=== PATIENT | female | born 1995 | race Two or more races ===

== ENCOUNTER 2022-04-26 08:40 | Outpatient (CLI) | payer OTHER | END 2022-04-26 23:59 | disposition home or self-care (01) | LOC: WOU 08:40 | PROVIDERS: ATTEND Surgery | DX: L72.3 Sebaceous cyst (principal) | CPT/HCPCS: G0463 ==

== ENCOUNTER 2022-05-10 08:00 | Outpatient (CLI) | payer OTHER | END 2022-05-10 23:59 | disposition home or self-care (01) | LOC: WOU 08:00 | PROVIDERS: ATTEND Surgery | DX: L72.3 Sebaceous cyst (principal) | CPT/HCPCS: G0463 ==

== ENCOUNTER 2022-06-28 08:10 | Outpatient (CLI) | payer OTHER ==
[2022-06-28 08:34] LABS: BASOPHILS % (AUTO) 0.5 % (0.0-2.0); EOSINOPHILS % (AUTO) 1.1 % (0.0-6.0); HEMATOCRIT 40 % (33-45); HEMOGLOBIN 13.3 g/dL (11.5-14.8); LYMPHOCYTES # (AUTO) 1.8 K/uL (0.8-4.8); LYMPHOCYTES % (AUTO) 28.7 % (20.0-44.0); MEAN CORPUSCULAR HGB CONC 34 g/dl (31.0-36.0); MEAN CORPUSCULAR VOLUME 90 fL (82-100); MONOCYTES # (AUTO) 0.6 K/uL (0.1-1.30); MONOCYTES % (AUTO) 9.3 % (2.0-12.0); NEUTROPHILS # (AUTO) 3.7 K/uL (1.8-8.9); NEUTROPHILS % (AUTO) 60.4 % (43.0-81.0); PLATELET COUNT (AUTO) 221 K/uL (150-450); RED BLOOD CELL COUNT(AUTO) 4.37 MIL/uL (4.0-5.2); WHITE BLOOD COUNT (AUTO) 6.1 K/uL (4.3-11.0)
[2022-06-28 08:38] LABS: CREATININE 0.9 mg/dL (0.6-1.3); POTASSIUM 3.7 mmol/L (3.5-5.1)
== END 2022-06-28 23:59 | disposition home or self-care (01) ==
LOC: LAB 08:10
PROVIDERS: ATTEND Surgery
DX: L72.3 Sebaceous cyst (principal)
CPT/HCPCS: 36415; 80048-TC; 85025-TC; 85610-TC; 85730-TC

== ENCOUNTER 2022-07-01 08:04 | Outpatient (CLI) | payer OTHER | END 2022-07-01 23:59 | disposition home or self-care (01) | LOC: LAB 08:04 | PROVIDERS: ATTEND Surgery | DX: Z01.812 Encounter for preprocedural laboratory examination (principal); Z20.822 Contact with and (suspected) exposure to COVID-19 | CPT/HCPCS: U0003; C9803 ==

== ENCOUNTER 2022-07-05 06:32 | Day surgery (SDC) | payer OTHER ==
[2022-07-05] MEDS ORDERED: FENTANYL PF 250MCG/5ML AMPUL ONE (07:06)
[2022-07-05] MEDS ORDERED: MIDAZOLAM HCL 2 MG/2ML VIAL ONE (07:06)
[2022-07-05] MEDS ORDERED: ANESTHESIA TRAY IN PYXIS 1 EA TRAY MC ONE ×2 (07:06→07:08)
[2022-07-05] MEDS ORDERED: LIDOCAINE 1%-EPI 1:100,000 20 ML VIAL ONE (07:35)
[2022-07-05] MEDS ORDERED: IBUPROFEN 200 MG TABLET PO PRN (09:30)
== END 2022-07-05 10:00 | disposition home or self-care (01) ==
LOC: DS 06:32
PROVIDERS: ATTEND Surgery
DX: N60.02 Solitary cyst of left breast (principal); F32.9 Major depressive disorder, single episode, unspecified; E66.3 Overweight; Z68.32 Body mass index [BMI] 32.0-32.9, adult; L72.3 Sebaceous cyst; Z98.890 Other specified postprocedural states; Z79.899 Other long term (current) drug therapy
CPT/HCPCS: 19120; 84703; J0690; J1100; J2704; J3490 ×2; J2405; J7030; J2250; J3010; 88108-TC; 88305-TC; 88312-TC

== ENCOUNTER 2022-07-14 13:15 | Outpatient (CLI) | payer OTHER | END 2022-07-14 23:59 | disposition home or self-care (01) | LOC: WOU 13:15 | PROVIDERS: ATTEND Surgery | DX: R10.9 Unspecified abdominal pain (principal); Z98.890 Other specified postprocedural states; L72.3 Sebaceous cyst | CPT/HCPCS: G0463 ==

== ENCOUNTER 2022-08-02 08:56 | Outpatient (CLI) | payer OTHER | END 2022-08-02 23:59 | disposition home or self-care (01) | LOC: WOU 08:56 | PROVIDERS: ATTEND Surgery | DX: Z48.817 Encounter for surgical aftercare following surgery on the skin and subcutaneous tissue (principal); L72.3 Sebaceous cyst | CPT/HCPCS: G0463 ==

== ENCOUNTER 2022-08-30 08:09 | Outpatient (CLI) | payer OTHER | END 2022-08-30 23:59 | disposition home or self-care (01) | LOC: WOU 08:09 | PROVIDERS: ATTEND Surgery | DX: N63.20 Unspecified lump in the left breast, unspecified quadrant (principal); L72.3 Sebaceous cyst | CPT/HCPCS: G0463 ==